=== PATIENT | male | born 1950 | race Caucasian/White ===

== ENCOUNTER 2017-09-16 13:23 | Outpatient (CLI) | payer MEDICARE, OTHER | END 2017-09-16 13:24 | disposition home or self-care (01) | LOC: RT 13:23 | PROVIDERS: ATTEND Registered Nurse | DX: J45.909 Unspecified asthma, uncomplicated (principal) | CPT/HCPCS: 94060 ==

== ENCOUNTER 2019-12-31 15:14 | Outpatient (CLI) | payer MEDICARE, OTHER ==
--- NOTE | 2020-01-02 09:12 | XRAY Report ---
Reason: COUGH Procedure Date: 12/31/2019 Accession Number: [id number] / [id number] Procedure: XR - Chest 2 View X-Ray CPT Code: 89093 Final Report FULL RESULT: EXAM: CHEST RADIOGRAPHY EXAM DATE: 12/31/2019 03:32 PM. CLINICAL HISTORY: COUGH. History of recurrent pneumonia. COMPARISON: CHEST 2 VIEW PA/LAT 08/31/2014 12:34 AM CHEST 2 VIEW PA/LAT 11/21/2013 2:04 AM ABDOMEN/PELVIS W/O 03/06/2013 10:54 PM. TECHNIQUE: 2 views. FINDINGS: Lungs/Pleura: No focal opacities evident. No pleural effusion. No pneumothorax. Normal volumes. Mediastinum: Heart and mediastinal contours are unremarkable. Other: No acute osseous abnormality. There are degenerative changes of the partially visualized left glenohumeral joint. There are mild degenerative disk changes of the thoracic spine. IMPRESSION: No acute cardiopulmonary abnormality. No focal pulmonary consolidation. RADIA
== END 2019-12-31 15:15 | disposition home or self-care (01) ==
LOC: DI 15:14
PROVIDERS: ATTEND Registered Nurse
DX: R05 Cough (principal)
CPT/HCPCS: 71046

== ENCOUNTER 2023-01-18 18:26 | Outpatient (CLI) | payer MEDICARE, OTHER | END 2023-01-18 18:27 | disposition critical access hospital (66) | LOC: EMS 18:26 | DX: S00.01XA Abrasion of scalp, initial encounter (principal); W10.9XXA Fall (on) (from) unspecified stairs and steps, initial encounter; Y93.89 Activity, other specified; Y92.008 Other place in unspecified non-institutional (private) residence as the place of occurrence of the external cause; Z79.01 Long term (current) use of anticoagulants | CPT/HCPCS: A0425; A0429 ==

== ENCOUNTER 2023-01-18 18:43 | Emergency (ER) | payer MEDICARE, OTHER ==
--- NOTE | 2023-01-18 18:51 | ED Physician Documentation ---
PD HPI HEAD INJURY - Stated complaint Stated Complaint: GLF - History obtained from History obtained from: Patient, EMS - Additional information Additional information: 72-year-old gentleman who is on Eliquis for atrial fibrillation was sitting on his deck having a great time after a couple of margaritas. He was chasing an umbrella that had gone away in the wind, and fell down a couple steps and hit the back of his head on concrete. He did not lose consciousness and does not feel injured per se. No other injuries. He is up-to-date on tetanus. PD PAST MEDICAL HISTORY - Past Medical History Cardiovascular: Atrial fibrillation : Kidney stones, Other - Past Surgical History Past Surgical History: Yes Ortho: ACL reconstruction, Shoulder arthroplasty - Present Medications Home Medications: Ambulatory Orders Medication Instructions Recorded Confirmed Dabigatran [Pradaxa] 75 mg PO BID 03/06/13 12/04/14 Folic Acid 0 03/06/13 12/04/14 diltiaZEM [Cardizem] 30 mg PO ONCE 03/06/13 12/04/14 allopurinoL [Allopurinol] 0 08/30/14 12/04/14 - Allergies Allergies/Adverse Reactions: Allergies Allergy/AdvReac Type Severity Reaction Status Date / Time No Known Drug Allergies Allergy Verified 01/18/23 18:52 - Social History Does the pt smoke?: No Smoking Status: Never smoker Does the pt drink ETOH?: Yes Does the pt have substance abuse?: No - Immunizations Immunizations are current?: Yes Immunizations: TDAP current <10years - POLST Patient has POLST: No PD ED PE NORMAL - Vitals Vital signs reviewed: Yes - General General: Alert and oriented X 3, No acute distress - HEENT HEENT: PERRL, EOMI, Other (There is an abrasion/contusion on the right occiput) - Neck Neck: Supple, no meningeal sign, No bony TTP - Neuro Neuro: Alert and oriented X 3 Eye Opening: Spontaneous Motor: Obeys Commands Verbal: Oriented GCS Score: 15 - Psych Psych: Normal mood, Normal affect Results - Vitals Vitals: Vital Signs - 24 hr 01/18/23 18:48 Temperature 36.3 C L Heart Rate 74 Respiratory 15 Rate Blood Pressure 170/136 H O2 Saturation 95 Oxygen O2 Source Room air - Rads (name of study) CT of the head and cervical spine were without evidence of acute trauma. He does have degenerative changes at the neck. Relevant Findings:: Final report received, EMP independent interpretation of test PD Medical Decision Making - ED course ED course: 72-year-old gentleman brought in as a modified trauma as he is on a DOAC after a head injury but relatively minor injury seen on exam and clinically. CT im aging of the head and neck were negative for acute findings. Departure - Departure Disposition: 01 Home, Self Care Clinical Impression: Injury of head and neck Qualifiers: Encounter type: initial encounter Qualified Code(s): S09.90XA - Unspecified injury of head, initial encounter Condition: Good Record reviewed to determine appropriate education?: Yes Instructions: ED Head Injury Closed Comments: You were seen today with fall for the head injury. Your head looks fine. Neck looks fine as well but you do have a lot of arthritic changes in your lower neck. Nothing related today's fall. Do not drink or drive the rest of the day. Return if worsening. Follow-up with your primary care physician, next available appointment. Your blood pressure was elevated today on check into the emergency department. This does not mean that you have hypertension, it is a common phenomenon to come to the emergency department and have elevated blood pressure. I recommend that you see your primary care physician within the week to have it rechecked when you are feeling better.
--- NOTE | 2023-01-18 19:21 | CT Report ---
PROCEDURE: HEAD WO INDICATIONS: head inj TECHNIQUE: Noncontrast 4.5 mm thick angled axial sections acquired from the foramen magnum to the vertex. For r adiation dose reduction, the following was used: automated exposure control, adjustment of mA and/or kV according to patient size. COMPARISON: Correlation is made with the accompanying cervical spine CT, 01/18/2023. FINDINGS: Image quality: There is streak artifact seen through the skull base. CSF spaces: Basal cisterns are patent. No extra-axial fluid collections. Ventricles are normal in size and shape. Brain: No midline shift. No intracranial masses or hemorrhage. Kyle-white matter interface is norm al. Skull and face: Calvarium and visualized facial bones are intact, without suspicious lesions. Sinuses: Visualized sinuses and mastoids are clear. IMPRESSION: No intracranial hemorrhage is seen. No significant intracranial abnormality is seen. Reviewed by: Jeffry Wood MD on 01/18/2023 6:20 PM RIKKI Approved by: Jeffry Wood MD on 01/18/2023 6:20 PM MILUC Station ID: [id number]
--- NOTE | 2023-01-18 19:23 | CT Report ---
PROCEDURE: CERVICAL SPINE WO INDICATIONS: head inj TECHNIQUE: Noncontrast 3 mm thick sections acquired from the skull base to the T4 level. Sagittal and coronal r eformats were then constructed. For radiation dose reduction, the following was used: automated exp osure control, adjustment of mA and/or kV according to patient size. COMPARISON: Correlation is made with the accompanying head CT, 01/18/2023. FINDINGS: Image quality: Excellent. Bones: No fractures or dislocations. Visualized superior ribs are intact. Focal degenerative change can be seen involving the C1-C2 interface anteriorly. Moderate disc space narrowing can be seen at C3-C4 and C4-C5, moderate severe disc space narrowing se en at C5-C6, C6-C7, and at C7-T1. Degenerative changes can be seen within the upper thoracic spine. M ultiple levels of facet hypertrophy can be seen. Soft tissues: Prevertebral soft tissues are normal in thickness. No paravertebral hematomas. No ap ical pneumothoraces. IMPRESSION: No acute cervical spine fracture is seen. Significant cervical spine degenerative change can be seen, which is worst inferiorly. Reviewed by: Jeffry Wood MD on 01/18/2023 6:22 PM RIKKI Approved by: Jeffry Wood MD on 01/18/2023 6:22 PM RIKKI Station ID: [id number]
[2023-01-18 19:49] VITALS: BP 135/89
== END 2023-01-18 19:55 | disposition home or self-care (01) ==
LOC: EDUNIT# → ED 18:43
DX: S09.90XA Unspecified injury of head, initial encounter (principal); S19.9XXA Unspecified injury of neck, initial encounter; W10.9XXA Fall (on) (from) unspecified stairs and steps, initial encounter; Y93.89 Activity, other specified; Y92.018 Other place in single-family (private) house as the place of occurrence of the external cause; I48.91 Unspecified atrial fibrillation; Z79.01 Long term (current) use of anticoagulants; Z79.899 Other long term (current) drug therapy
CPT/HCPCS: 99283; 99284

== ENCOUNTER 2024-05-22 08:51 | Outpatient (CLI) | payer MEDICARE, OTHER | END 2024-05-22 23:59 | disposition left against medical advice (07) | LOC: EMS 08:51 | DX: S80.211A Abrasion, right knee, initial encounter (principal); W01.0XXA Fall on same level from slipping, tripping and stumbling without subsequent striking against object, initial encounter; Y92.008 Other place in unspecified non-institutional (private) residence as the place of occurrence of the external cause; Z79.01 Long term (current) use of anticoagulants ==

== ENCOUNTER 2024-05-24 15:04 | Emergency (ER) | payer MEDICARE, OTHER ==
--- NOTE | 2024-05-24 15:41 | ED Physician Documentation ---
History of Present Illness - Stated complaint Stated Complaint: UTI - Chief complaint Chief Complaint: General - History obtained from History obtained from: Patient, Family - Additonal information Additional information: This is a 73-year-old male he has a history of CAD as well as atrial fibrillation who presents with concern for possible UTI. According to , he has had low-grade fever, chills and has had a "brain fog" for the last several days. They were seen last week at the clinic and diagnosed with a urinary tract infection and given Cipro which the patient took though he is only received about 2 and half days so far because the pharmacy had a delay in giving it to him. states that he seems a little bit better today but still not back to baseline. He has also had a fairly persistent cough for the past 10 days or so. It is worse at nighttime. He states cough is mostly dry, no hemoptysis or sputum production. He denies any chest pain. He had a viral URI about 2 weeks ago And symptoms partially resolved but the cough persisted and has worsened recently. He also had a ground-level fall 2 days ago. He did hit his head but there is no loss of consciousness. Is unclear why he fell, is not sure if he was dizzy or if he tripped and fell. He is on Eliquis for atrial fibrillation. Patient does drink alcohol though states he drinks no more than 2 drinks daily usually a glass of wine or mixed drink. He has not had a drink in 5 to 7 days. He has never had any withdrawal symptoms. PD PAST MEDICAL HISTORY - Past Medical History Past Medical History: Yes Cardiovascular: Coronary artery disease, Atrial fibrillation Respiratory: None Neuro: TIA Endocrine/Autoimmune: None GI: None : Kidney stones, Other HEENT: None Musculoskeletal: None - Past Surgical History Past Surgical History: Yes Ortho: ACL reconstruction, Shoulder arthroplasty - Present Medications Home Medications: Ambulatory Orders Medication Instructions Recorded Confirmed Dabigatran [Pradaxa] 75 mg PO BID 03/06/13 12/04/14 Folic Acid 0 03/06/13 12/04/14 diltiaZEM [Cardizem] 30 mg PO ONCE 03/06/13 12/04/14 allopurinoL [Allopurinol] 0 08/30/14 12/04/14 Amox/Clav 875/125 [Augmentin] 1 each PO Q12H #20 tablet 05/24/24 Azithromycin [Zithromax Tri-Misbah] 500 mg PO DAILY 3 Days #3 tablet 05/24/24 - Allergies Allergies/Adverse Reactions: Allergies Allergy/AdvReac Type Severity Reaction Status Date / Time No Known Drug Allergies Allergy Verified 05/24/24 15:09 - Social History Does the pt smoke?: No Smoking Status: Former smoker Does the pt drink ETOH?: Yes ETOH Use: Wine, Liquor Does the pt have substance abuse?: Yes Substance Use and Type: CBD oil / Products - Immunizations Immunizations are current?: Yes Immunizations: TDAP current <10years - POLST Patient has POLST: No PD ED PE NORMAL - Vitals Vital signs reviewed: Yes - General General: Alert and oriented X 3, No acute distress, Well developed/nourished, Other (oriented but occasionally forgetful, "brain fog.") - HEENT HEENT: Atraumatic, PERRL, EOMI, Moist mucous membranes, Pharynx benign - Neck Neck: Supple, no meningeal sign, No bony TTP, No JVD, C-Spine cleared by NEXUS criteria - Cardiac Cardiac: No murmur, No gallop, No rub, Other (irregularly irreg) - Respiratory Respiratory: Other (diminished r lung sounds, no wheezes. mildly tachypneic w/ fits of dry cough, no other distress) - Abdomen Abdomen: Normal bowel sounds, Soft, Non tender, Non distended - Derm Derm: Normal color, Warm and dry, No rash - Extremities Extremities: No deformity, No tenderness to palpate, Normal ROM s pain, No edema, No calf tenderness / cord - Neuro Neuro: Alert and oriented X 3, tierce filler 2-12 intact, No motor deficit, No sensory deficit, Normal speech Eye Opening: Spontaneous Motor: Obeys Commands Verbal: Oriented GCS Score: 15 - Psych Psych: Normal mood, Normal affect Results - Vitals Vitals: Vital Signs - 24 hr 05/24/24 05/24/24 05/24/24 15:11 15:53 16:23 Temperature 37 C Heart Rate 93 90 97 Respiratory 16 20 22 Rate Blood Pressure 136/79 H 137/94 H O2 Saturation 97 96 94 05/24/24 18:20 Temperature Heart Rate 100 Respiratory 28 H Rate Blood Pressure 147/90 H O2 Saturation 90 L Oxygen O2 Source Room air Oxygen Flow Rate 2 - EKG (time done) No standard instances EKG releavant findings:: EKG personally interpreted by author of this note. Relevant findings are: Rate: Rate (enter#) (99) Rhythm: Atrial fibrillation Intervals: RBBB Computer interpretation: Agree with computer - Labs Labs: Laboratory Tests 05/24/24 05/24/24 05/24/24 15:45 15:45 15:45 WBC 8.2 RBC 3.90 L Hgb 13.2 L Hct 40.0 L MCV 102.6 H MCH 33.8 H MCHC 33.0 RDW 13.3 Plt Count 169 MPV 10.1 Neut # (Auto) 6.5 Lymph # (Auto) 0.6 L Grady # (Auto) 0.8 Eos # (Auto) 0.2 Baso # (Auto) 0.0 Absolute Nucleated RBC 0.00 Nucleated RBC % 0.0 Sodium 130 L Potassium 3.8 Chloride 94 L Carbon Dioxide 25 Anion Gap 11.0 BUN 30 H Creatinine 1.6 H Estimated GFR (MDRD) 42 L Glucose 117 H Lactic Acid Calcium 9.7 Total Bilirubin 0.8 AST 235 H ALT 102 H Alkaline Phosphatase 128 H Troponin I High Sens B-Natriuretic Peptide Total Protein 7.7 Albumin 3.8 Globulin 3.9 Albumin/Globulin Ratio 1.0 Urine Color Urine Clarity Urine pH Ur Specific Lisle Urine Protein Urine Glucose (UA) Urine Ketones Urine Occult Blood Urine Nitrite Urine Bilirubin Urine Urobilinogen Ur Leukocyte Esterase Urine RBC Urine WBC Ur Squamous Epith Cells Amorphous Sediment Urine Bacteria Urine Casts Urine Culture Comments Nasal Influenza B PCR Nasal Influenza A PCR Nasal RSV (PCR) Nasal SARS-CoV-2 (PCR) Ethyl Alcohol < 10.0 05/24/24 05/24/24 05/24/24 15:45 15:45 16:21 WBC RBC Hgb Hct MCV MCH MCHC RDW Plt Count MPV Neut # (Auto) Lymph # (Auto) Grady # (Auto) Eos # (Auto) Baso # (Auto) Absolute Nucleated RBC Nucleated RBC % Sodium Potassium Chloride Carbon Dioxide Anion Gap BUN Creatinine Estimated GFR (MDRD) Glucose Lactic Acid Calcium Total Bilirubin AST ALT Alkaline Phosphatase Troponin I High Sens 26.8 H* B-Natriuretic Peptide 89 Total Protein Albumin Globulin Albumin/Globulin Ratio Urine Color DARK YELLOW Urine Clarity HAZY Urine pH 5.5 Ur Specific Lisle >=1.030 H Urine Protein >=300 H Urine Glucose (UA) NEGATIVE Urine Ketones NEGATIVE Urine Occult Blood MODERATE H Urine Nitrite NEGATIVE Urine Bilirubin SMALL H Urine Urobilinogen 4 H Ur Leukocyte Esterase NEGATIVE Urine RBC 0-5 Urine WBC 0-3 Ur Squamous Epith Cells RARE Squamous Amorphous Sediment Few Urine Bacteria None Seen Urine Casts 3-5 Granular Casts Urine Culture Comments NOT INDICATED Nasal Influenza B PCR Nasal Influenza A PCR Nasal RSV (PCR) Nasal SARS-CoV-2 (PCR) Ethyl Alcohol 05/24/24 05/24/24 05/24/24 17:01 17:35 18:30 WBC RBC Hgb Hct MCV MCH MCHC RDW Plt Count MPV Neut # (Auto) Lymph # (Auto) Grady # (Auto) Eos # (Auto) Baso # (Auto) Absolute Nucleated RBC Nucleated RBC % Sodium Potassium Chloride Carbon Dioxide Anion Gap BUN Creatinine Estimated GFR (MDRD) Glucose Lactic Acid 2.4 H Calcium Total Bilirubin AST ALT Alkaline Phosphatase Troponin I High Sens 24.3 H* B-Natriuretic Peptide Total Protein Albumin Globulin Albumin/Globulin Ratio Urine Color Urine Clarity Urine pH Ur Specific Lisle Urine Protein Urine Glucose (UA) Urine Ketones Urine Occult Blood Urine Nitrite Urine Bilirubin Urine Urobilinogen Ur Leukocyte Esterase Urine RBC Urine WBC Ur Squamous Epith Cells Amorphous Sediment Urine Bacteria Urine Casts Urine Culture Comments Nasal Influenza B PCR NOT DETECTED Nasal Influenza A PCR NOT DETECTED Nasal RSV (PCR) NOT DETECTED Nasal SARS-CoV-2 (PCR) NOT DETECTED Ethyl Alcohol - Rads (name of study) No standard instances Relevant Findings:: Final report received PD Medical Decision Making - ED course Complexity details: reviewed results, re-evaluated patient, considered differential, d/w patient, d/w family ED course: This is a 73-year-old gentleman who presented with concerns for possible UTI today with some mild ongoing urinary symptoms as well as subjective fever, Mild confusion/"brain fog," he has also had a cough, and had a ground-level fall a couple of days ago and he is on Eliquis. He is awake and alert on initial exam, nontoxic and afebrile here, mildly tachycardic though he does have atrial fibrillation, and mildly tachypneic oxygenating 90 to 92% on room air, occasionally dipping down into the upper 80s when he is resting. I considered a broad differential initially given his multiple different concerns today and included UTI, sepsis, pneumonia, CHF, ACS, TIA, intracranial hemorrhage. A sepsis workup was undertaken and the patient was sent for head CT which showed no acute intracranial Injury or signs of stroke. Lab work was notable for mild elevation in LFTs which was new from prior no bilirubin reassuring. was he had mild increase in creatinine to 1.6 with a elevated BUN, his CBC was generally reassuring. Chest x-ray showed signs of possible CHF however we obtain a CT abdomen pelvis given his liver function tests and the CT abdomen pelvis showed a large right lower lobe consolidation concerning for pneumonia, no other acute findings on the CT. Troponin x 2 is just mildly elevated and downtrending likely not kiosk sales representative of ACS. Patient was given a gram of ceftriaxone and 500 mg of IV azithromycin. I recommended hospitalization as both his curb score and PSI score were elevated and hospitalization warranted however patient adamantly declined. 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 I had extensive discussion with him and his about my concerns that he could worsen and recommended at minimum overnight hospitalization however patient continued to decline despite discussion of risks including Respiratory failure, Worsening kidney function, worsening liver function, and . Patient and both state understanding and they have signed an AMA form. The patient was given first dose antibiotics here and he will be discharged with Augmentin and azithromycin for treatment of community-acquired pneumonia but was advised that if you change his mind at any point time or felt like he was worsening to immediately return to the ER for reevaluation. He was encouraged to abstain from alcohol use, and have repeat liver function testing in the next week or 2. I would like him to see his PCP this week for follow-up on his ammonia if possible. Patient was discharged home AGAINST MEDICAL ADVICE in the care of his . Departure - Departure Disposition: Against Medical Advice Clinical Impression: Right lower lobe pneumonia Qualifiers: Pneumonia type: due to unspecified organism Qualified Code(s): J18.9 - Pneumonia, unspecified organism Condition: Fair Instructions: ED Pneumonia Adult Prescriptions: Amox/Clav 875/125 [Augmentin] 1 each PO Q12H #20 tablet Azithromycin [Zithromax Tri-Misbah] 500 mg PO DAILY 3 Days #3 tablet Comments: As we discussed, you have a pneumonia in your right lung. It is fairly significant and we strongly recommended hospitalization however you declined hospitalization and requested to go home. If you change your mind at any point in time, do not hesitate to return to the emergency department and we will reevaluate you. I am concerned that you could get worse and even critically ill from this pneumonia. I have prescribed antibiotics to treat the pneumonia. You will take the azithromycin once daily for the next 3 days and the Augmentin twice daily for the next 10 days. Please schedule a follow-up appointment with your primary doctor as soon as possible to evaluate for improvement in your symptoms. I would like you to be seen later this week if possible. I have sent your medication to [facility] in [place]. Forms: PCP List
[2024-05-24 15:55] LABS: BASOPHILS % (AUTO) 0.2 %; EOSINOPHILS # (AUTO) 0.2 10^3/uL (0.0-0.7); EOSINOPHILS % (AUTO) 2.4 %; HGB - HEMOGLOBIN 13.2 g/dL (14.0-18.0); LYMPHOCYTES # (AUTO) 0.6 10^3/uL (1.5-3.5); LYMPHOCYTES % (AUTO) 7.7 %; MEAN CORPUSCULAR HEMOGLOBIN 33.8 pg (27.0-31.0); MEAN CORPUSCULAR VOLUME 102.6 fL (80.0-94.0); MEAN PLATELET VOLUME 10.1 fL (7.4-11.4); MONOCYTES # (AUTO) 0.8 10^3/uL (0.0-1.0); MONOCYTES % (AUTO) 9.4 %; NEUTROPHILS # (AUTO) 6.5 10^3/uL (1.5-6.6); NEUTROPHILS % (AUTO) 79.6 %; PLT - PLATELET COUNT 169 10^3/uL (130-450); RED CELL DISTRIBUTION WIDTH 13.3 % (12.0-15.0); WHITE BLOOD COUNT 8.2 x10^3/uL (4.8-10.8)
[2024-05-24 16:10] LABS: ALBUMIN 3.8 g/dL (3.2-5.5); BILIRUBIN,TOTAL 0.8 mg/dL (0.2-1.0); CALCIUM 9.7 mg/dL (8.5-10.3); CREATININE 1.6 mg/dL (0.6-1.3); POTASSIUM 3.8 mmol/L (3.5-4.5); TOTAL PROTEIN 7.7 g/dL (6.4-8.9)
--- NOTE | 2024-05-24 16:18 | CT Report ---
PROCEDURE: Head WO INDICATIONS: fall, on eliquis TECHNIQUE: Noncontrast 4.5 mm thick angled axial sections acquired from the foramen magnum to the vertex. For r adiation dose reduction, the following was used: automated exposure control, adjustment of mA and/or kV according to patient size. COMPARISON: 01/18/2023. FINDINGS: Image quality: Posterior fossa artifact. CSF spaces: Basal cisterns are patent. No extra-axial fluid collections. Ventricles are normal in size and shape. Brain: No midline shift. No intracranial masses or hemorrhage. Kyle-white matter interface is norm al. Intracranial carotid calcifications. Age-related volume loss and small vessel ischemic change. Skull and face: Calvarium and visualized facial bones are intact, without suspicious lesions. Sinuses: Visualized sinuses and mastoids are clear. IMPRESSION: No acute intracranial pathology. Reviewed by: Ghassan Presley MD on 05/24/2024 4:17 PM PDT Approved by: Ghassan Presley MD on 05/24/2024 4:17 PM PDT Station ID: [id number]
--- NOTE | 2024-05-24 16:19 | XRAY Report ---
PROCEDURE: Chest 1V INDICATIONS: chest pain TECHNIQUE: One view of the chest was acquired. COMPARISON: 12/31/2019. FINDINGS: Surgical changes and devices: Left shoulder arthroplasty. Lungs and pleura: Pulmonary edema. Right pleural effusion and basilar atelectasis. Mediastinum: Mediastinal contours appear normal. Heart size is normal. Bones and chest wall: No suspicious bony lesions. Overlying soft tissues appear unremarkable. IMPRESSION: Congestive heart failure exacerbation Reviewed by: Ghassan Presley MD on 05/24/2024 4:18 PM PDT Approved by: Ghassan Presley MD on 05/24/2024 4:18 PM PDT Station ID: [id number]
[2024-05-24 16:30] LABS: BILIRUBIN,URINE SMALL (NEGATIVE); GLUCOSE, URINE (UA) NEGATIVE (NEGATIVE); KETONES,URINE (UA) NEGATIVE (NEGATIVE); LEUKOCYTE ESTERASE, URINE NEGATIVE (NEGATIVE); NITRITE,URINE NEGATIVE (NEGATIVE); OCCULT BLOOD,URINE MODERATE (NEGATIVE); PH,URINE 5.5 PH (5.0-7.5); PROTEIN,URINE >=300 mg/dL (NEGATIVE); UROBILINOGEN,URINE 4 E.U./dL (NORMAL)
[2024-05-24 16:48] LABS: AMORPHOUS SEDIMENT,UR Few /LPF; BACTERIA,URINE None Seen /HPF (None Seen); CASTS, URINE 3-5 Granular Casts /LPF; CLARITY,URINE HAZY (CLEAR); RBC,URINE 0-5 /HPF (0-5); SQUAMOUS EPITHELIAL CELL,UR RARE Squamous (<= Few); WBC,URINE 0-3 /HPF (0-3)
[2024-05-24 17:21] LABS: LACTIC ACID, VENOUS 2.4 mmol/L (0.5-2.2)
[2024-05-24] MEDS ORDERED: iohexoL-300 100 ML VIAL ONE (17:34)
--- NOTE | 2024-05-24 17:44 | ED Physician Documentation ---
ED Addendum - Addendum Addendum: 05/24/24 17:44 He was difficult for IV access and the nurses had tried and failed. I personally placed a long 22-gauge IV in the right basilic vein after ChloraPrep using real-time ultrasound guidance. They needed a second troponin was drawn at the time of IV insertion. I was otherwise not involved in the case.
[2024-05-24] MEDS: iohexoL-300 100 ML VIAL IVP ONE (17:51)
[2024-05-24] MEDS: cefTRIAXone 1 GM in SODIUM CHLORIDE 0.9% MINIBAG 100 ML IV STA (18:24)
--- NOTE | 2024-05-24 18:25 | CT Report ---
PROCEDURE: Abdomen/Pelvis W INDICATIONS: sepsis, elevated lfts CONTRAST: 100ml [id number] TECHNIQUE: After the administration of intravenous contrast, a CT scan of the abdomen and pelvis was performed. Images were recorded and evaluated at appropriate window settings. Reformats: coronal and sagittal. F or radiation dose reduction, the following was used: automated exposure control, adjustment of mA and /or kV according to patient size. COMPARISON: None. FINDINGS: Image quality: Diagnostic. Lower chest: Moderate to large airspace consolidation in right lower lobe is seen extending to the ri ght infrahilar region. No pleural effusion or pneumothorax. Heart size is mildly enlarged, trace amou nt of pericardial effusion. Liver: No solid mass. Gallbladder: No radiopaque stones or wall thickening. Biliary tree: No intrahepatic or extrahepatic dilation, accounting for age. Spleen: No splenomegaly. Pancreas: No pancreatic ductal dilation. Adrenals: No adrenal nodule. Kidneys and ureters: No hydronephrosis. Nonobstructing stone is noted in mid pole right kidney. No re nal cystic lesion which requires follow up. No solid mass. Stomach, bowel and peritoneum: No gastric or small bowel dilation. No abnormal wall thickening. No pa thologic free fluid. No peritoneal free air. Lymph nodes: No central or retroperitoneal adenopathy. Vessels: No infrarenal aortic aneurysm. Patent portal vein. PELVIS Reproductive organs: Postsurgical changes are noted with brachytherapy seeds seen in prostate gland. Penile implant is seen with reservoir in right lower quadrant and is grossly intact. Bladder: No abno rmal wall thickening, accounting for underdistention. Pelvic lymph nodes: No pelvic adenopathy by size criteria. Bones: No aggressive osseous abnormality. Other: Bilateral inguinal hernias are seen containing fat and short segment of small bowel loops. IMPRESSION: 1. Moderate to large right lower lobe infiltrate. No pleural effusion. No pneumothorax. 2. No bowel obstruction or abnormal bowel wall thickening. No free fluid of free air. 3. Nonobstructing stone in mid pole right kidney. No hydronephrosis or hydroureter. Normal-appearing urinary bladder. 4. Penile implant in place. Brachytherapy seeds in place. Reviewed by: Shad Davidson MD on 05/24/2024 6:23 PM PDT Approved by: Shad Davidson MD on 05/24/2024 6:23 PM PDT Station ID: [id number]
[2024-05-24] MEDS: AZITHROMYCIN INJ 500 MG in SODIUM CHLORIDE 0.9% 250 ML IV STA (19:05)
[2024-05-24 19:40] LABS: INFLUENZA A- RESP PCR PANEL NOT DETECTED; INFLUENZA B - RESP PCR PANEL NOT DETECTED; RSV- RESP PCR PANEL NOT DETECTED; SARS-CoV-2 -RESP PCR PANEL NOT DETECTED
[2024-05-24 20:29] VITALS: BP 140/88; O2SAT 94
== END 2024-05-24 20:22 | disposition left against medical advice (07) ==
LOC: ED 15:04
DX: J18.9 Pneumonia, unspecified organism (principal); R79.89 Other specified abnormal findings of blood chemistry; Z87.891 Personal history of nicotine dependence; Z79.01 Long term (current) use of anticoagulants; Z53.29 Procedure and treatment not carried out because of patient's decision for other reasons
CPT/HCPCS: 36415; 70450; 71045; 74177; 80053; 81001; 83605; 83880; 84484; 85025; 87040; 87637; 93005; 96365; 96366; 96368; 99284; G0480; Q9967; 82077; 87086

== ENCOUNTER 2024-05-28 15:24 | Outpatient (CLI) | payer MEDICARE, OTHER ==
[2024-05-28 15:56] LABS: ALBUMIN 3.6 g/dL (3.2-5.5)
[2024-05-28 16:02] LABS: BILIRUBIN,DIRECT 0.37 mg/dL (0.03-0.18); BILIRUBIN,TOTAL 0.9 mg/dL (0.2-1.0); TOTAL PROTEIN 7.4 g/dL (6.4-8.9)
[2024-05-28 16:20] LABS: FERRITIN 1216.2 ng/mL (23.9-336.2)
[2024-05-28 16:30] LABS: PARTIAL THROMBOPLASTIN TIME 28.8 secs (24.9-33.3)
[2024-05-28 16:34] LABS: INR 1.7 (0.8-1.2); PT - PROTHROMBIN TIME 18.1 secs (9.9-12.6)
[2024-05-29 03:11] LABS: HBsAG SCREEN Negative (Negative); HCV AB Non Reactive (Non Reactive); HEPATITIS B CORE IGM AB Negative (Negative)
== END 2024-05-28 15:25 | disposition home or self-care (01) ==
LOC: LAB 15:24
PROVIDERS: ATTEND Registered Nurse
DX: K75.89 Other specified inflammatory liver diseases (principal)
CPT/HCPCS: 36415; 80074; 80076; 82728; 82977; 83540; 84466; 85610; 85730

== ENCOUNTER 2024-05-31 15:32 | Outpatient (CLI) | payer MEDICARE, OTHER ==
[2024-05-31 16:07] LABS: ABSOLUTE RETICS # AUTO 0.069 10^6/uL (0.020-0.110); BASOPHILS % (AUTO) 0.6 %; EOSINOPHILS # (AUTO) 0.1 10^3/uL (0.0-0.7); EOSINOPHILS % (AUTO) 1.2 %; HGB - HEMOGLOBIN 13.4 g/dL (14.0-18.0); LYMPHOCYTES # (AUTO) 1.2 10^3/uL (1.5-3.5); LYMPHOCYTES % (AUTO) 17.3 %; MEAN CORPUSCULAR HEMOGLOBIN 34.2 pg (27.0-31.0); MEAN CORPUSCULAR HGB CONC 32.7 g/dL (32.0-36.0); MEAN CORPUSCULAR VOLUME 104.6 fL (80.0-94.0); MEAN PLATELET VOLUME 9.5 fL (7.4-11.4); MONOCYTES # (AUTO) 0.7 10^3/uL (0.0-1.0); MONOCYTES % (AUTO) 9.9 %; NEUTROPHILS # (AUTO) 4.9 10^3/uL (1.5-6.6); NEUTROPHILS % (AUTO) 70.3 %; PLT - PLATELET COUNT 491 10^3/uL (130-450); RED BLOOD COUNT 3.92 10^6/uL (4.70-6.10); RED CELL DISTRIBUTION WIDTH 13.7 % (12.0-15.0); RETICULOCYTE COUNT % (AUTO) 1.76 % (0.5-2.3); WHITE BLOOD COUNT 6.9 x10^3/uL (4.8-10.8)
[2024-05-31 16:18] LABS: ALBUMIN 3.7 g/dL (3.2-5.5); ALBUMIN/GLOBULIN RATIO 1.1 (1.0-2.2); ALKALINE PHOSPHATASE 276 IU/L (42-121); ALT ALANINE AMINOTRANSFERASE 172 IU/L (10-60); AST ASPARTATE AMINOTRANSFERASE 101 IU/L (10-42); BILIRUBIN,DIRECT 0.27 mg/dL (0.03-0.18); BILIRUBIN,TOTAL 0.8 mg/dL (0.2-1.0); BUN - BLOOD UREA NITROGEN 14 mg/dL (6-20); CALCIUM 9.9 mg/dL (8.5-10.3); CARBON DIOXIDE - CO2 29 mmol/L (21-32); CHLORIDE 103 mmol/L (101-111); GAMMA GLUTAMYL TRANSPEPTIDASE 461 IU/L (9-64); GFR - MDRD 73 (>89); GLUCOSE 99 mg/dL (74-104); POTASSIUM 3.9 mmol/L (3.5-4.5); SODIUM 140 mmol/L (135-145); TOTAL PROTEIN 7.2 g/dL (6.4-8.9)
[2024-05-31 16:27] LABS: SALICYLATE < 1.5 mg/dL
[2024-05-31 16:42] LABS: INR 1.6 (0.8-1.2); PT - PROTHROMBIN TIME 17.5 secs (9.9-12.6)
[2024-05-31 16:42] LABS: CREATININE,URINE 288.4 mg/dL; MICROALBUM/CREATININE RATIO,UR 7.6 ug/mg (<30.0); MICROALBUMIN,URINE 2.2 mg/dL; PROTEIN/CREATININE RATIO,URINE 0.1 (<=0.2)
[2024-05-31 17:42] LABS: BILIRUBIN,URINE SMALL (NEGATIVE); GLUCOSE, URINE (UA) NEGATIVE (NEGATIVE); KETONES,URINE (UA) TRACE mg/dL (NEGATIVE); LEUKOCYTE ESTERASE, URINE NEGATIVE (NEGATIVE); NITRITE,URINE NEGATIVE (NEGATIVE); OCCULT BLOOD,URINE NEGATIVE (NEGATIVE); PH,URINE 5.5 PH (5.0-7.5); PROTEIN,URINE TRACE mg/dL (NEGATIVE); UROBILINOGEN,URINE 1 (NORMAL) E.U./dL (NORMAL)
[2024-05-31 18:15] LABS: BACTERIA,URINE Rare /HPF (None Seen); CASTS, URINE 0-2 Fine Granular /LPF; CLARITY,URINE CLOUDY (CLEAR); MUCUS,URINE Moderate Strands; RBC,URINE None Seen /HPF (0-5); SQUAMOUS EPITHELIAL CELL,UR FEW Squamous (<= Few)
== END 2024-05-31 15:33 | disposition home or self-care (01) ==
LOC: LAB 15:32
DX: R94.5 Abnormal results of liver function studies (principal); R17 Unspecified jaundice; R39.9 Unspecified symptoms and signs involving the genitourinary system
CPT/HCPCS: 36415; 80053; 81001; 82043; 82140; 82248; 82570; 82977; 84156; 85025; 85045; 85610; G0480; 80179